=== PATIENT | male | born 1955 | race Caucasian/White ===

== ENCOUNTER 2018-07-16 08:52 | Outpatient (REF) | payer OTHER, SELFPAY ==
[2018-07-16 19:22] LABS: Anion Gap 7.2 mmol/L (3-11); BUN 15 mg/dL (7-18); CO2 29.8 mmol/L (21.0-32.0); CREATININE 1.13 mg/dL (0.70-1.30); Chloride 104 mmol/L (98-107); Cholesterol 157 mg/dL (50-200); Glucose 100 mg/dL (70-100); HDL Cholesterol 65 mg/dL (40-60); LDL CHOLESTEROL 84 mg/dL (<100); Potassium 4.4 mmol/L (3.5-5.1); Sodium 141 mmol/L (136-145); Triglyceride 60 mg/dL (30-150)
[2018-07-16 19:27] LABS: Calcium 8.3 mg/dL (8.5-10.1)
[2018-07-16 19:50] LABS: Hemoglobin A1C 5.6 % (4.5-6.2)
== END 2018-07-16 08:53 ==
LOC: NCHCN 08:52
PROVIDERS: PCP Physician Assistant; Visit Provider Physician Assistant Medical
DX: Z00.00 Encounter for general adult medical examination without abnormal findings (principal); Z13.1 Encounter for screening for diabetes mellitus; Z13.228 Encounter for screening for other metabolic disorders; Z13.220 Encounter for screening for lipoid disorders
CPT/HCPCS: 80048; 80061; 83721; 83036

== ENCOUNTER 2020-07-14 10:58 | Outpatient (REF) | payer OTHER, SELFPAY ==
[2020-07-14 21:35] LABS: Abs Immature Grans 0.04 10^3/uL (0.0-0.06); Absolute Basophil Count 0.04 10^3/uL (0.0-0.2); Absolute Eosinophil Count 0.12 10^3/uL (0.0-0.7); Absolute Lymphocyte Count 0.49 10^3/uL (1.2-3.4); Absolute Monocyte Count 0.54 10^3/uL (0.1-0.8); Basophils % 0.5; Eosinophils % 1.4; HCT 37.6 % (40.0-50.0); HGB 11.4 g/dL (13.5-17.5); Immature Grans % 0.5; Lymphocytes % 5.6; MCH 24.8 pg (27.0-33.0); MCHC 30.3 % (32.0-36.0); MCV 81.7 fL (80-95); MPV 9.7 fL (8.0-11.0); Monocytes % 6.2; Neutrophils % 85.8; Nucleated RBC 0 %; Platelet Count 277 10^3/uL (130-400); RDW 17.3 % (11.8-14.1); RDW-SD 50.8 fL; WBC 8.73 10^3/uL (4.4-10.8)
[2020-07-14 21:50] LABS: ALT 18 U/L (16-63); AST 11 U/L (15-37); Albumin 3.1 g/dL (3.4-5.0); Alkaline Phosphatase 73 U/L (46-116); Anion Gap 10.5 mmol/L (3-11); BUN 19 mg/dL (7-18); Bilirubin, Total 0.5 mg/dL (0.2-1.0); CO2 26.5 mmol/L (21.0-32.0); CREATININE 0.98 mg/dL (0.70-1.30); Calcium 8.7 mg/dL (8.5-10.1); Calculated LDL 72 mg/dL (<100); Chloride 106 mmol/L (98-107); Cholesterol 151 mg/dL (<200); Glucose 102 mg/dL (74-106); HDL Cholesterol 71 mg/dL (40-60); Potassium 4.4 mmol/L (3.5-5.1); Sodium 143 mmol/L (136-145); Total Protein 5.7 g/dL (6.4-8.2); Triglyceride 44 mg/dL (<150)
[2020-07-14 22:04] LABS: Hemoglobin A1C 5.9 % (3.8-5.6)
== END 2020-07-14 11:18 ==
LOC: NCHCN 10:58
PROVIDERS: PCP Internal Medicine; Visit Provider Physician Assistant
DX: R60.0 Localized edema (principal); R73.09 Other abnormal glucose; J44.9 Chronic obstructive pulmonary disease, unspecified; J90 Pleural effusion, not elsewhere classified; M06.9 Rheumatoid arthritis, unspecified; R79.89 Other specified abnormal findings of blood chemistry
CPT/HCPCS: 80053; 80061; 83036; 85025

== ENCOUNTER 2020-09-24 04:03 | Outpatient (RCR) | payer OTHER, SELFPAY ==
[2020-09-24] VITALS (8 sets, daily range): BP systolic 114–139; BP diastolic 70–80; PULSE 86–95; RESP 16–18; TEMP 36.7–37.1; O2SAT 96–98
[2020-09-24] MEDS: methylPREDNISolone SUCC 125 MG VIAL IVP (08:23)
[2020-09-24] MEDS: diphenhydrAMINE 25 MG CAP PO (08:23)
[2020-09-24] MEDS: Normal Saline Flush 10 ML SYR IVP (08:24)
== END 2020-09-25 23:59 | disposition home or self-care (01) ==
LOC: INF 04:03
PROVIDERS: PCP Internal Medicine; Visit Provider Nurse Practitioner Acute Care
DX: M06.9 Rheumatoid arthritis, unspecified (principal)
CPT/HCPCS: 96365; 96366; J2930; J9312

== ENCOUNTER 2020-10-08 03:49 | Outpatient (RCR) | payer OTHER, SELFPAY ==
[2020-10-08 07:47] VITALS: BP 131/75; PULSE 107; RESP 19; TEMP 36.9; O2SAT 97
[2020-10-08] MEDS: methylPREDNISolone SUCC 125 MG VIAL 100 MG IVP (07:51)
[2020-10-08] MEDS: Normal Saline Flush 10 ML SYR IVP (07:53)
[2020-10-08] MEDS: diphenhydrAMINE 25 MG CAP PO (07:53)
[2020-10-08 08:32] VITALS: BP 113/71; PULSE 86; RESP 17; TEMP 36.9; O2SAT 99
[2020-10-08 09:02] VITALS: BP 111/72; PULSE 80; RESP 18; TEMP 36.6; O2SAT 97
[2020-10-08 09:32] VITALS: BP 110/67; PULSE 80; RESP 18; TEMP 36.6; O2SAT 97
== END 2020-10-25 23:59 | disposition home or self-care (01) ==
LOC: INF 03:49
PROVIDERS: PCP Internal Medicine; Visit Provider Nurse Practitioner Acute Care
DX: M06.9 Rheumatoid arthritis, unspecified (principal)
CPT/HCPCS: 96365; 96366; 96375; J2930; J9312

== ENCOUNTER 2020-11-09 13:23 | Outpatient (REF) | payer OTHER, SELFPAY ==
[2020-11-09 19:56] LABS: BUN 15 mg/dL (7-18); CREATININE 1.18 mg/dL (0.70-1.30); Calcium 8.6 mg/dL (8.5-10.1); Chloride 105 mmol/L (98-107); Glucose 110 mg/dL (74-106); Potassium 4.4 mmol/L (3.5-5.1); Sodium 139 mmol/L (136-145)
== END 2020-11-09 13:43 ==
LOC: NCHCN 13:23
PROVIDERS: PCP Internal Medicine; Visit Provider Physician Assistant
DX: R60.0 Localized edema (principal)
CPT/HCPCS: 80048; 83735

== ENCOUNTER 2021-07-15 09:29 | Outpatient (REF) | payer OTHER, SELFPAY ==
[2021-07-15 18:48] LABS: HCT 32.7 % (40.0-50.0); HGB 9.1 g/dL (13.5-17.5); MCH 21.8 pg (27.0-33.0); MCHC 27.8 % (32.0-36.0); MCV 78.2 fL (80-95); MPV 9.4 fL (8.0-11.0); Platelet Count 280 10^3/uL (130-400); RBC 4.18 10^6/uL (4.36-5.78); RDW 21.6 % (11.8-14.1); RDW-SD 61.7 fL; WBC 6.24 10^3/uL (4.4-10.8)
[2021-07-15 19:32] LABS: Anion Gap 7.6 mmol/L (3-11); BUN 17 mg/dL (7-18); CO2 31.4 mmol/L (21.0-32.0); Calcium 8.8 mg/dL (8.5-10.1); Chloride 104 mmol/L (98-107); Glucose 106 mg/dL (74-106); Potassium 4.7 mmol/L (3.5-5.1); Sodium 143 mmol/L (136-145)
== END 2021-07-15 09:30 | disposition home or self-care (01) ==
LOC: NCHCN 09:29
PROVIDERS: PCP Internal Medicine; Visit Provider Physician Assistant
DX: D50.9 Iron deficiency anemia, unspecified (principal); R73.03 Prediabetes; I82.432 Acute embolism and thrombosis of left popliteal vein
CPT/HCPCS: 80048; 85027

== ENCOUNTER 2021-08-23 08:55 | Outpatient (REF) | payer OTHER, SELFPAY ==
[2021-08-23 17:36] LABS: HCT 35.2 % (40.0-50.0); HGB 10.1 g/dL (13.5-17.5); MCHC 28.7 % (32.0-36.0); MCV 83.6 fL (80-95); MPV 10.1 fL (8.0-11.0); Platelet Count 215 10^3/uL (130-400); RBC 4.21 10^6/uL (4.36-5.78); RDW 18.4 % (11.8-14.1); RDW-SD 56.1 fL; WBC 5.58 10^3/uL (4.4-10.8)
== END 2021-08-23 08:56 | disposition home or self-care (01) ==
LOC: NCHCN 08:55
PROVIDERS: PCP Internal Medicine; Visit Provider Physician Assistant
DX: D50.9 Iron deficiency anemia, unspecified (principal)
CPT/HCPCS: 85027

== ENCOUNTER 2021-09-22 08:51 | Outpatient (REF) | payer MEDICARE, SELFPAY ==
[2021-09-22 19:47] LABS: HCT 39.1 % (40.0-50.0); HGB 11.3 g/dL (13.5-17.5); MCH 24.1 pg (27.0-33.0); MCHC 28.9 % (32.0-36.0); MCV 83.5 fL (80-95); MPV 9.4 fL (8.0-11.0); Platelet Count 192 10^3/uL (130-400); RBC 4.68 10^6/uL (4.36-5.78); RDW 14.4 % (11.8-14.1); RDW-SD 43.1 fL; WBC 5.08 10^3/uL (4.4-10.8)
== END 2021-09-22 08:52 | disposition home or self-care (01) ==
LOC: NCHCN 08:51
PROVIDERS: PCP Internal Medicine; Visit Provider Physician Assistant
DX: D50.9 Iron deficiency anemia, unspecified (principal)
CPT/HCPCS: 85027

== ENCOUNTER 2021-09-27 01:58 | Outpatient (RCR) | payer MEDICARE, SELFPAY ==
[2021-09-27] VITALS (9 sets, daily range): BP systolic 112–133; BP diastolic 68–77; PULSE 63–73; RESP 16–18; TEMP 35.9–37.1; O2SAT 96–99
[2021-09-27] MEDS: diphenhydrAMINE 25 MG CAP PO (10:01)
[2021-09-27] MEDS: Normal Saline Flush 10 ML SYR IVP (10:01)
[2021-09-27] MEDS: methylPREDNISolone SUCC 125 MG VIAL 100 MG IVP (10:01)
== END 2021-10-25 23:59 | disposition home or self-care (01) ==
LOC: INF 01:58
PROVIDERS: PCP Internal Medicine; Visit Provider Family Medicine
DX: M06.9 Rheumatoid arthritis, unspecified (principal); Z79.899 Other long term (current) drug therapy
CPT/HCPCS: 96365; 96366; 96374; 96375; J2930; J9312

== ENCOUNTER 2021-10-18 12:17 | Outpatient (REF) | payer MEDICARE, SELFPAY ==
[2021-10-18 20:40] LABS: HCT 40.1 % (40.0-50.0); HGB 11.6 g/dL (13.5-17.5); MCH 24.4 pg (27.0-33.0); MCHC 28.9 % (32.0-36.0); MCV 84.4 fL (80-95); MPV 10.3 fL (8.0-11.0); Platelet Count 196 10^3/uL (130-400); RBC 4.75 10^6/uL (4.36-5.78); RDW 14.2 % (11.8-14.1); RDW-SD 43.4 fL; WBC 6.69 10^3/uL (4.4-10.8)
== END 2021-10-18 12:18 | disposition home or self-care (01) ==
LOC: NCHCN 12:17
PROVIDERS: PCP Internal Medicine; Visit Provider Physician Assistant
DX: D50.9 Iron deficiency anemia, unspecified (principal)
CPT/HCPCS: 85027

== ENCOUNTER 2021-11-03 02:29 | Outpatient (RCR) | payer MEDICARE, SELFPAY ==
[2021-10-26 00:14] VITALS: BP 122/74; PULSE 68; RESP 17; TEMP 36.3
[2021-11-03] VITALS (7 sets, daily range): BP systolic 119–132; BP diastolic 74–86; PULSE 64–83; RESP 17; TEMP 36.3–36.9; O2SAT 97–99
[2021-11-03] MEDS: diphenhydrAMINE 25 MG CAP PO (09:39)
[2021-11-03] MEDS: Normal Saline Flush 10 ML SYR IVP (09:40)
== END 2021-11-25 23:59 | disposition home or self-care (01) ==
LOC: INF 02:29
PROVIDERS: PCP Internal Medicine; Visit Provider Family Medicine
DX: M06.9 Rheumatoid arthritis, unspecified (principal)
CPT/HCPCS: 96365; 96366; J9312

== ENCOUNTER 2022-01-10 09:49 | Outpatient (REF) | payer MEDICARE, SELFPAY ==
[2022-01-10 21:18] LABS: Anion Gap 3.7 mmol/L (3-11); BUN 16 mg/dL (7-18); CO2 30.3 mmol/L (21.0-32.0); Calcium 8.5 mg/dL (8.5-10.1); Chloride 106 mmol/L (98-107); Glucose 100 mg/dL (74-106); Potassium 4.9 mmol/L (3.5-5.1); Sodium 140 mmol/L (136-145)
== END 2022-01-10 09:50 | disposition home or self-care (01) ==
LOC: NCHCN 09:49
PROVIDERS: PCP Internal Medicine; Visit Provider Physician Assistant
DX: D50.9 Iron deficiency anemia, unspecified (principal); R60.9 Edema, unspecified
CPT/HCPCS: 80048

== ENCOUNTER 2022-01-11 15:01 | Outpatient (REF) | payer MEDICARE, SELFPAY ==
[2022-01-11 20:52] LABS: HGB 13.1 g/dL (13.5-17.5); MCH 28.1 pg (27.0-33.0); MCHC 31.2 % (32.0-36.0); MCV 89.9 fL (80-95); MPV 9.8 fL (8.0-11.0); Platelet Count 171 10^3/uL (130-400); RBC 4.67 10^6/uL (4.36-5.78); RDW 14.2 % (11.8-14.1); WBC 5.53 10^3/uL (4.4-10.8)
== END 2022-01-11 15:02 | disposition home or self-care (01) ==
LOC: NCHCN 15:01
PROVIDERS: PCP Internal Medicine; Visit Provider Physician Assistant
DX: D50.9 Iron deficiency anemia, unspecified (principal)
CPT/HCPCS: 85027

== ENCOUNTER 2022-05-16 18:26 | Outpatient (REF) | payer MEDICARE, SELFPAY ==
[2022-05-16 19:16] LABS: HCT 41.2 % (40.0-50.0); HGB 12.7 g/dL (13.5-17.5); MCH 28.4 pg (27.0-33.0); MCHC 30.8 % (32.0-36.0); MCV 92 fL (80-95); MPV 10.2 fL (8.0-11.0); Platelet Count 178 10^3/uL (130-400); RBC 4.47 10^6/uL (4.36-5.78); RDW 13.8 % (11.8-14.1); RDW-SD 46.1 fL; WBC 7.04 10^3/uL (4.4-10.8)
== END 2022-05-16 18:27 | disposition home or self-care (01) ==
LOC: NCHCN 18:26
PROVIDERS: PCP Internal Medicine; Visit Provider Physician Assistant
DX: D50.9 Iron deficiency anemia, unspecified (principal)
CPT/HCPCS: 85027

== ENCOUNTER 2022-07-11 19:14 | Outpatient (REF) | payer MEDICARE, SELFPAY ==
[2022-07-11 20:26] LABS: Anion Gap 5.3 mmol/L (3-11); BUN 16 mg/dL (7-18); CO2 31.7 mmol/L (21.0-32.0); Calcium 8.7 mg/dL (8.5-10.1); Chloride 104 mmol/L (98-107); Ferritin 49 ng/mL (26-388); Glucose 96 mg/dL (74-106); LDL CHOLESTEROL 67 mg/dL (<100); Potassium 4.3 mmol/L (3.5-5.1); Sodium 141 mmol/L (136-145)
== END 2022-07-11 19:15 | disposition home or self-care (01) ==
LOC: NCHCN 19:14
PROVIDERS: PCP Internal Medicine; Visit Provider Physician Assistant
DX: D50.9 Iron deficiency anemia, unspecified (principal); R73.03 Prediabetes; R60.1 Generalized edema; Z79.899 Other long term (current) drug therapy
CPT/HCPCS: 80048; 83721; 82728

== ENCOUNTER 2022-07-12 14:51 | Outpatient (REF) | payer MEDICARE, SELFPAY ==
[2022-07-12 21:04] LABS: HCT 42.1 % (40.0-50.0); HGB 13.9 g/dL (13.5-17.5); MCH 29.8 pg (27.0-33.0); MCV 90 fL (80-95); MPV 9.9 fL (8.0-11.0); Platelet Count 202 10^3/uL (130-400); RBC 4.67 10^6/uL (4.36-5.78); RDW 13.4 % (11.8-14.1); RDW-SD 44.6 fL; WBC 9.76 10^3/uL (4.4-10.8)
[2022-07-12 21:20] LABS: Iron 64 ug/dL (65-175); Total Iron Binding Capacity 308 ug/dL (250-450); Transferrin Sat 21 % (20-55)
[2022-07-12 21:42] LABS: Hemoglobin A1C 5.6 % (<5.7)
== END 2022-07-12 14:52 | disposition home or self-care (01) ==
LOC: NCHCN 14:51
PROVIDERS: PCP Internal Medicine; Visit Provider Physician Assistant
DX: D50.9 Iron deficiency anemia, unspecified (principal); R73.03 Prediabetes; R60.9 Edema, unspecified
CPT/HCPCS: 85027; 83036; 83540; 83550

== ENCOUNTER 2022-10-18 02:09 | Outpatient (RCR) | payer MEDICARE, SELFPAY ==
[2022-10-04] VITALS (9 sets, daily range): BP systolic 107–140; BP diastolic 65–79; PULSE 58–71; RESP 17–18; TEMP 36.3–36.7; O2SAT 95–98
[2022-10-04] MEDS: methylPREDNISolone SUCC 125 MG VIAL 100 MG IVP (09:12)
[2022-10-04] MEDS: Normal Saline Flush 10 ML SYR IVP (09:12)
[2022-10-04] MEDS: diphenhydrAMINE 25 MG CAP PO (09:12)
[2022-10-18] MEDS: diphenhydrAMINE 25 MG CAP PO (09:06)
[2022-10-18 09:07] VITALS: BP 129/76; PULSE 67; RESP 18; TEMP 36.4; O2SAT 97
[2022-10-18] MEDS: Normal Saline Flush 10 ML SYR IVP (09:07)
[2022-10-18] MEDS: riTUXimab-PVVR 1,000 MG in Normal Saline 150 ML 62.5 MG IVPB (09:25)
[2022-10-18 10:00] VITALS: BP 114/69; PULSE 60; RESP 18; TEMP 37; O2SAT 99
[2022-10-18 10:30] VITALS: BP 131/75; PULSE 64; RESP 17; TEMP 36.6; O2SAT 97
[2022-10-18 11:00] VITALS: BP 121/73; PULSE 61; RESP 17; TEMP 36.5; O2SAT 98
[2022-10-18 11:30] VITALS: BP 118/70; PULSE 57; RESP 17; TEMP 36.4; O2SAT 97
[2022-10-18 12:00] VITALS: BP 121/65; PULSE 59; RESP 17; TEMP 36.4; O2SAT 97
== END 2022-10-25 23:59 | disposition home or self-care (01) ==
LOC: INF 02:09
PROVIDERS: PCP Internal Medicine; Visit Provider Nurse Practitioner Acute Care
DX: M06.9 Rheumatoid arthritis, unspecified (principal)
CPT/HCPCS: 96365; 96366; 96374; 96375; J2930; J9312; Q5119

== ENCOUNTER 2023-01-12 13:38 | Outpatient (REF) | payer MEDICARE, SELFPAY ==
[2023-01-12 18:58] LABS: Hemoglobin A1C 5.4 % (<5.7)
[2023-01-12 19:04] LABS: ALT 21 U/L (16-63); AST 21 U/L (15-37); Albumin 4.1 g/dL (3.4-5.0); Alkaline Phosphatase 117 U/L (46-116); Anion Gap 4.9 mmol/L (3-11); BUN 20 mg/dL (7-18); Bilirubin, Total 0.9 mg/dL (0.2-1.0); CO2 32.1 mmol/L (21.0-32.0); CREATININE 1.1 mg/dL (0.70-1.30); Calcium 9.7 mg/dL (8.5-10.1); Chloride 104 mmol/L (98-107); Estimated GFR 72.67 (mL/min/1.73m2); Glucose 103 mg/dL (74-106); Potassium 5.2 mmol/L (3.5-5.1); Sodium 141 mmol/L (136-145); Total Protein 7.3 g/dL (6.4-8.2)
[2023-01-12 19:26] LABS: Abs Immature Grans 0.02 10^3/uL (0.0-0.06); Absolute Basophil Count 0.06 10^3/uL (0.0-0.2); Absolute Eosinophil Count 0.14 10^3/uL (0.0-0.7); Absolute Monocyte Count 0.79 10^3/uL (0.1-0.8); Absolute Neutrophil Count 7.88 10^3/uL (1.2-6.7); Basophils % 0.6; Eosinophils % 1.4; HCT 44.9 % (40.0-50.0); HGB 14.3 g/dL (13.5-17.5); Immature Grans % 0.2; Lymphocytes % 8.3; MCH 28.1 pg (27.0-33.0); MCHC 31.8 % (32.0-36.0); MCV 88 fL (80-95); MPV 9.9 fL (8.0-11.0); Monocytes % 8.2; Neutrophils % 81.3; Platelet Count 220 10^3/uL (130-400); RBC 5.09 10^6/uL (4.36-5.78); RDW 12.8 % (11.8-14.1); RDW-SD 41.5 fL; WBC 9.69 10^3/uL (4.4-10.8)
[2023-01-15 10:18] LABS: PSA, Screening 0.5 ng/mL (<=4.5)
== END 2023-01-12 13:39 | disposition home or self-care (01) ==
LOC: NCHCN 13:38
PROVIDERS: PCP Internal Medicine; Visit Provider Physician Assistant
DX: R73.03 Prediabetes (principal); Z12.5 Encounter for screening for malignant neoplasm of prostate
CPT/HCPCS: 80053; 84153; 83036; 85025

== ENCOUNTER 2023-08-16 18:02 | Outpatient (REF) | payer MEDICARE, SELFPAY ==
[2023-08-16 19:07] LABS: HCT 41.3 % (40.0-50.0); HGB 12.5 g/dL (13.5-17.5); MCH 26.7 pg (27.0-33.0); MCHC 30.3 % (32.0-36.0); MCV 88 fL (80-95); MPV 9.6 fL (8.0-11.0); Platelet Count 216 10^3/uL (130-400); RBC 4.69 10^6/uL (4.36-5.78); RDW 13.7 % (11.8-14.1); RDW-SD 44.1 fL; WBC 8.58 10^3/uL (4.4-10.8)
[2023-08-16 19:27] LABS: AST 15 U/L (15-37); Albumin 3.4 g/dL (3.4-5.0); Alkaline Phosphatase 84 U/L (46-116); Anion Gap 5.5 mmol/L (3-11); BUN 15 mg/dL (7-18); Bilirubin, Total 0.4 mg/dL (0.2-1.0); CO2 29.5 mmol/L (21.0-32.0); Chloride 103 mmol/L (98-107); Estimated GFR 80.97 (mL/min/1.73m2); Glucose 106 mg/dL (74-106); Potassium 4.8 mmol/L (3.5-5.1); Sodium 138 mmol/L (136-145); Total Protein 6.6 g/dL (6.4-8.2)
[2023-08-16 19:52] LABS: ALT 21 U/L (16-63)
== END 2023-08-16 18:03 | disposition home or self-care (01) ==
LOC: NCHCN 18:02
PROVIDERS: PCP Internal Medicine; Visit Provider Physician Assistant
DX: D50.9 Iron deficiency anemia, unspecified (principal); R73.03 Prediabetes
CPT/HCPCS: 80053; 85027

== ENCOUNTER → 2023-10-12 13:00 | Outpatient (BNVA) | payer MEDICARE, SELFPAY | PROVIDERS: PCP Internal Medicine; Referring Provider Internal Medicine; Visit Provider Student in an Organized Health Care Education/Training Program | DX: Z79.51 Long term (current) use of inhaled steroids (principal); Z79.899 Other long term (current) drug therapy; M06.9 Rheumatoid arthritis, unspecified; J44.9 Chronic obstructive pulmonary disease, unspecified; L60.5 Yellow nail syndrome | CPT/HCPCS: 76604; 99214 ==

== ENCOUNTER → 2024-01-21 10:56 | Outpatient (BNVA) | payer MEDICARE, SELFPAY | PROVIDERS: PCP Internal Medicine; Referring Provider Internal Medicine; Visit Provider Physician Assistant Surgical | DX: J44.9 Chronic obstructive pulmonary disease, unspecified (principal); M06.9 Rheumatoid arthritis, unspecified; L60.5 Yellow nail syndrome | CPT/HCPCS: 99214 ==

== ENCOUNTER 2024-02-29 13:45 | Outpatient (REF) | payer MEDICARE, SELFPAY ==
[2024-02-29 19:13] LABS: HCT 41.7 % (40.0-50.0); MCH 27.7 pg (27.0-33.0); MCHC 31.2 % (32.0-36.0); MCV 89 fL (80-95); MPV 9.9 fL (8.0-11.0); Platelet Count 186 10^3/uL (130-400); RBC 4.69 10^6/uL (4.36-5.78); RDW 12.9 % (11.8-14.1); RDW-SD 42.3 fL; WBC 6.86 10^3/uL (4.4-10.8)
[2024-02-29 19:36] LABS: Iron 33 ug/dL (65-175); Total Iron Binding Capacity 312 ug/dL (250-450); Transferrin Sat 11 % (20-55)
[2024-02-29 19:50] LABS: Ferritin 49 ng/mL (26-388)
== END 2024-02-29 13:46 | disposition home or self-care (01) ==
LOC: NCHCN 13:45
PROVIDERS: PCP Internal Medicine; Referring Provider Physician Assistant; Visit Provider Physician Assistant
DX: D50.9 Iron deficiency anemia, unspecified (principal)
CPT/HCPCS: 85027; 82728; 83540; 83550

== ENCOUNTER 2024-04-23 04:50 | Outpatient (RCR) | payer MEDICARE, SELFPAY ==
[2024-04-02] VITALS (9 sets, daily range): BP systolic 116–132; BP diastolic 54–72; PULSE 51–71; RESP 16–18; TEMP 36–36.9; O2SAT 92–98
[2024-04-02] MEDS: diphenhydrAMINE 25 MG CAP PO (09:01)
[2024-04-02] MEDS: Normal Saline Flush 10 ML SYR IVP (09:17)
[2024-04-23] MEDS: diphenhydrAMINE 25 MG CAP PO (09:04)
[2024-04-23] MEDS: Normal Saline Flush 10 ML SYR IVP (09:04)
[2024-04-23 09:10] VITALS: BP 133/75; PULSE 65; RESP 16; TEMP 36.3; O2SAT 99
[2024-04-23 10:15] VITALS: BP 128/71; PULSE 57; RESP 17; TEMP 36.7; O2SAT 96
[2024-04-23 10:45] VITALS: BP 137/72; PULSE 55; RESP 16; TEMP 36.3; O2SAT 98
[2024-04-23 11:15] VITALS: BP 130/72; PULSE 59; RESP 17; TEMP 36.4; O2SAT 99
[2024-04-23 11:45] VITALS: BP 134/73; PULSE 60; RESP 17; TEMP 36.5; O2SAT 98
[2024-04-23 12:45] VITALS: BP 129/68; PULSE 60; RESP 17; TEMP 36.4; O2SAT 98
== END 2024-04-25 23:59 | disposition home or self-care (01) ==
LOC: INF 04:50
PROVIDERS: PCP Internal Medicine; Visit Provider Nurse Practitioner Family
DX: M06.9 Rheumatoid arthritis, unspecified (principal)
CPT/HCPCS: 96365; 96366; J9312

== ENCOUNTER 2024-06-06 23:40 | Outpatient (REF) | payer MEDICARE, SELFPAY ==
[2024-06-06 19:16] LABS: Abs Immature Grans 0.05 10^3/uL (0.0-0.06); Absolute Basophil Count 0.05 10^3/uL (0.0-0.2); Absolute Eosinophil Count 0.08 10^3/uL (0.0-0.7); Absolute Lymphocyte Count 0.59 10^3/uL (1.2-3.4); Absolute Monocyte Count 1.07 10^3/uL (0.1-0.8); Basophils % 0.4 %; Eosinophils % 0.6 %; HGB 13.8 g/dL (13.5-17.5); Immature Grans % 0.4 %; Lymphocytes % 4.6 %; MCH 28.3 pg (27.0-33.0); MCHC 32.1 % (32.0-36.0); MCV 88 fL (80-95); MPV 9.6 fL (8.0-11.0); Monocytes % 8.4 %; Neutrophils % 85.6 %; Platelet Count 280 10^3/uL (130-400); RBC 4.88 10^6/uL (4.36-5.78); RDW-SD 42.3 fL; WBC 12.73 10^3/uL (4.4-10.8)
[2024-06-06 19:34] LABS: ALT 26 U/L (16-63); AST 16 U/L (15-37); Albumin 3.3 g/dL (3.4-5.0); Alkaline Phosphatase 134 U/L (46-116); Anion Gap 4.6 mmol/L (3-11); BUN 15 mg/dL (7-18); CO2 32.4 mmol/L (21.0-32.0); CREATININE 1.1 mg/dL (0.70-1.30); Calcium 9.2 mg/dL (8.5-10.1); Chloride 101 mmol/L (98-107); Estimated GFR 71.77 (mL/min/1.73m2); Glucose 150 mg/dL (74-106); Potassium 4.3 mmol/L (3.5-5.1); Sodium 138 mmol/L (136-145); TSH (W/Ref FT4) 0.72 uIU/mL (0.36-3.74); Total Protein 6.6 g/dL (6.4-8.2)
== END 2024-06-06 23:41 | disposition home or self-care (01) ==
LOC: NCHCN 23:40
PROVIDERS: PCP Internal Medicine; Visit Provider Physician Assistant
DX: R63.4 Abnormal weight loss (principal)
CPT/HCPCS: 80053; 84443; 85025

== ENCOUNTER → 2024-07-17 09:29 | Outpatient (BNVA) | payer MEDICARE, SELFPAY | PROVIDERS: PCP Internal Medicine; Referring Provider Internal Medicine; Visit Provider Internal Medicine Critical Care Medicine | DX: J47.1 Bronchiectasis with (acute) exacerbation (principal); J44.9 Chronic obstructive pulmonary disease, unspecified; R91.8 Other nonspecific abnormal finding of lung field; L60.5 Yellow nail syndrome | CPT/HCPCS: 99214 ==

== ENCOUNTER 2024-07-22 12:36 | Day surgery (SDC) | payer MEDICARE, SELFPAY ==
[2024-07-22] VITALS (22 sets, daily range): BP systolic 111–138; BP diastolic 41–95; PULSE 64–73; RESP 13–26; TEMP 36.2–36.8; O2SAT 92–99; BMI 22.7
[2024-07-22] MEDS: Lactated Ringers 1,000 ML 30 ML IV (13:07)
--- NOTE | 2024-07-22 13:40 | ANES.PREOP_ITS ---
General Info Date of Service Date Performed: 07/22/24 Height: 5 ft 9.5 in Weight: 70.8 kg Body Mass Index (BMI): 22.7 Surgical Procedure: Operation Date: 07/22/24 14:25 Proposed Procedure Side Surgeon p Flexible Bronchoscopy Mendy Echols MD Meds Allergies and Home Medications Allergies Allergy/AdvReac Type Severity Reaction Status Date / Time hay Allergy Unknown red eyes, Uncoded 07/22/24 12:46 stuffy head Home Medication ?Medication ?Instructions ?Recorded ibuprofen 200 mg capsule 200 mg PO Q6H PRN 02/05/23 miscellaneous medical supply 02/05/23 sildenafil 100 mg tablet (Viagra) 100 mg PO DAILY PRN 02/05/23 fluticasone fur. 100 mcg-umeclid 1 inh inhalation DAILY 02/07/23 62.5 mcg-vilant 25 mcg inhalat.powder (Trelegy Ellipta) albuterol sulfate 90 mcg/actuation 2 puff inhalation .COMPLEX PRN 08/24/23 aerosol inhaler ipratropium 0.5 mg-albuterol 3 mg 3 ml inhalation Q6H PRN wheezing 10/29/23 (2.5 mg base)/3 mL nebulization #180 mL soln ferrous sulfate 325 mg (65 mg 325 mg PO DAILY 01/21/24 iron) tablet (Feosol) pantoprazole 20 mg tablet,delayed 20 mg PO DAILY 07/21/24 release Current Visit Medications: Current Medications Generic Name Dose Route Start Last Admin Trade Name Freq PRN Reason Stop Dose Admin Ringer's Solution 1,000 mls @ 30 mls/hr 07/22/24 06:00 07/22/24 13:07 IV 07/22/24 23:59 30 mls/hr INFUSION DEMETRA Administration IV Miscellaneous Supplies 1 each 07/22/24 06:00 Iv Access IV 07/22/24 23:59 DIRECTED DEMETRA Sodium Chloride 0 ml 07/22/24 06:00 Normal Saline Flush 10 Ml Syr IV 07/22/24 23:59 PRN PRN Sodium Chloride 0 ml 07/22/24 06:00 Normal Saline 10 Ml Vial IJ 07/22/24 23:59 DIRECTED PRN Sterile Water 0 ml 07/22/24 06:00 Water,Injection,Sterile 10 Ml Vial IJ 07/22/24 23:59 DIRECTED PRN PFSH Active Problems Active Problems: Problem Status Onset Code Opacity of lung on imaging study Acute R91.8 Bronchiectasis Acute J47.9 Sensorineural hearing loss, bilateral Acute H90.3 Impacted cerumen, bilateral Acute H61.23 Arthritis, rheumatoid Chronic M06.9 Yellow nail syndrome Acute L60.5 Chronic obstructive pulmonary disease, unspecified Chronic J44.9 Impacted cerumen, left ear Acute H61.22 Conductive hearing loss, external ear Acute 04/04/18 H90.2 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 History of colonoscopy external hemorrhoid/lipoma ascending colon -01/14/10 History of thoracentesis H/O sinus surgery History of tonsillectomy and adenoidectomy Tobacco Smoking/Tobacco Use Status: Former Tobacco Use Alcohol Alcohol Intake: current Alcohol intake frequency: a few times a week Alcohol type: beer Substance Use Substance use: Never Substance use type: does not use Vital Signs and Lab Results Vital Signs Most Recent Vital Signs in EMR: Most Recent Vital Signs Temp Pulse Resp BP Pulse Ox 36.8 C 68 16 138/88 99 07/22/24 13:02 07/22/24 13:02 07/22/24 13:02 07/22/24 13:02 07/22/24 13:02 Lab Results Blood Type / Crossmatch: No Data to Display Complete Blood Count: No Data to Display Complete Metabolic Panel: No Data to Display Liver Function Panel: No Data to Display Coagulation Panel: No Data to Display Cardiac Panel: No Data to Display Arterial Blood Gas: No Data to Display Venous Blood Gas: No Data to Display Pancreas Panel: No Data to Display Thyroid Panel: No Data to Display Infectious Disease: No Data to Display Blood Cultures: No Data to Display Toxicology Panel: No Data to Display Anesthesia Assessment and Plan Anesthesia History Personal History: No History of Anesthesia Complications Family History: No Family History of Anesthesia Complications Exercise Tolerance Exercise Tolerance: Metabolic Equivalents>4 Pertinent Negatives Pertinent Negatives: No Symptoms of GERD, No Major Cardiovascular Symptoms or Complaints and No History of CVA/TIA Cardiac & Pulmonary Exam Cardiac Exam: Normal S1/S2 Heart Sounds Pulmonary Exam: Active Cough or Cold Implantable Cardiac Device Does patient have a Pacemaker or an ICD?: No Airway Exam Known Difficult Airway: No Mallampati Class: 2 Mouth Opening: Normal (> 3cm) Thyromental Distance: Greater than 3 cm Neck Range of Motion: Full ROM Neck Circumference: Normal Teeth Condition: Removable Dentures/Plates Upper ASA Classification ASA Score: ASA 3 Emergency Case?: No NPO Status NPO Status: NPO Clears >2 hours, Solids >8 hours Anesthesia Plan Resuscitation Status: Full Code Anesthesia Technique: General Anesthesia Airway Planned: Endotracheal Tube Monitors Used: Standard Monitors Preoperative Comments:: Active productive cough with thick green sputum, new mash filter cloth changer the past few weeks. Discussed with Dr. Schroeder and she is fine with proceeding as this is the reason he was scheduled.
--- NOTE | 2024-07-22 14:32 | PAPNONF_PTH ---
PATIENT: Oliverio [place] LOC: [facility] U#:[id number] AGE/SX: 69/M ROOM: RE07/22/[address]: Mendy Echols : 1955 BED: DIS: 07/22/2024 SPEC #: [id number] RECD: 07/22/24 17:23 STATUS: KEYLA REQ #: [id number] KYM: 07/22/24 14:[address]: Mendy Echols DEPT: [facility] Cytology RECD BY: Dalia Wilcox ENTERED: 07/22/24 17:24 SP TYPE: CHRISTEN BRUNNER DR: Mickey Macedo Tissues: 1 - BODY FLUID CYTO(NOT S/U/N/EM)[facility] Procedures: BODY FLUID CYTO(NOT SPU/UR/NIP/ENDOM)[facility] Comments: [id number] (SENT FRESH) (REFRIGERATED)
--- NOTE | 2024-07-22 14:56 | W.PM.OP ---
Date of service: 07/22/24 Time of Service: 14:00 Operative Note Operative Note DATE OF PROCEDURE: 07/22/24 PRE-OP DIAGNOSIS: Bronchiectasis, productive cough POST-OP DIAGNOSIS: same PROCEDURE: Bronchoscopy BAL RML SURGEON: Mendy Echols ANESTHESIA TYPE: General LMA/ETT Refer to Anesthesia Record ESTIMATED BLOOD LOSS: 0 Procedure Description: After consent obtained, patient was brought to OR and general anesthesia given and ETT 8.0 introduced without difficulty. A time out was performed. Fiberoptic Bronchoscope was introduced through ETT and trachea, johanna, right and left main stem and its subsegments were systematically identified. Trachea was patent and johanna was sharp. Both left and right main stem had some yellow thick secretions but endobronchial lesions seen. 150ml saline was instilled into RML w/ approximately 80ml return of mucopurulent secretion. Patient tolerated procedure well and had no immediate complications. Samples will be sent to -BAL cell count, micro, fungal, AFB cultures -BAL cytology
--- NOTE | 2024-07-22 16:10 | W.ANESPOSTOP ---
Postoperative Evaluation Date, Time and Location Date Performed: 07/22/24 Time Performed: 16:10 Patient Location: Day Surgery Unit Vital Signs Most Recent Imported Vital Signs: Most Recent Vital Signs Temp Pulse Resp BP Pulse Ox 36.6 C 65 20 121/64 94 07/22/24 15:40 07/22/24 15:40 07/22/24 15:40 07/22/24 15:40 07/22/24 15:40 Pain Score Most Recent Pain Score: Most Recent Pain Score Pain Level 0 07/22/24 15:40 Assessment Mental Status: Awake (Alert & Oriented to Patient Baseline) Airway and Respiratory Function: Patent airway with normal (patient baseline) respiratory exam Cardiovascular Function: Hemodynamically Stable Hydration Status: Adequately Hydrated Nausea & Vomiting: No Nausea or Vomiting Pain: Pt. Denies Any Pain Peripheral Nerve Block: Patient did not receive a nerve block
[2024-07-23 08:56] LABS: Eosinophils Fluid Relative 2 %; Lymphocytes Fluid Relative 6 %; Mono/Macrophage Fluid Relative 6 %; Neutrophils Fluid Relative 86 %
[2024-07-24 15:58] LABS: Gram Smear Result Neutrophils Present
[2024-08-27 09:51] LABS: Fungal Culture & Smear See Comments
[2024-09-17 11:20] LABS: AFB Culture Result See Comments
== END 2024-07-22 16:16 | disposition home or self-care (01) ==
PROVIDERS: PCP Internal Medicine; Visit Provider Internal Medicine Critical Care Medicine
PROC: 0BJ08ZZ Inspection of Tracheobronchial Tree, Via Natural or Artificial Opening Endoscopic (ICD-10-PCS; CPT 31622; principal; 2024-07-22 14:15)
DX: J47.1 Bronchiectasis with (acute) exacerbation (principal); R91.8 Other nonspecific abnormal finding of lung field; R84.6 Abnormal cytological findings in specimens from respiratory organs and thorax
CPT/HCPCS: 31624; 123; 80162; 87070; 87077; 87102; 87116; 87205; 87206; 00123; 88104; J1100; J2001; J2405; J2704

== ENCOUNTER → 2024-08-06 09:57 | Outpatient (BNVA) | payer MEDICARE, SELFPAY | PROVIDERS: PCP Internal Medicine; Referring Provider Internal Medicine; Visit Provider Physician Assistant Surgical | DX: J14 Pneumonia due to Hemophilus influenzae (principal); R91.8 Other nonspecific abnormal finding of lung field; J44.9 Chronic obstructive pulmonary disease, unspecified; M06.9 Rheumatoid arthritis, unspecified; L60.5 Yellow nail syndrome; J47.1 Bronchiectasis with (acute) exacerbation | CPT/HCPCS: 99214 ==

== ENCOUNTER → 2024-09-09 10:15 | Outpatient (BNVA) | payer MEDICARE, SELFPAY | PROVIDERS: PCP Internal Medicine; Referring Provider Internal Medicine; Visit Provider Physician Assistant Surgical | DX: J44.9 Chronic obstructive pulmonary disease, unspecified (principal); L60.5 Yellow nail syndrome; R91.8 Other nonspecific abnormal finding of lung field; M06.9 Rheumatoid arthritis, unspecified; J47.1 Bronchiectasis with (acute) exacerbation; J14 Pneumonia due to Hemophilus influenzae | CPT/HCPCS: 99214 ==

== ENCOUNTER 2025-03-18 11:53 | Outpatient (REF) | payer MEDICARE, SELFPAY ==
[2025-03-18 21:40] LABS: ALT 21 U/L (16-63); AST 21 U/L (15-37); Albumin 3.8 g/dL (3.4-5.0); Alkaline Phosphatase 88 U/L (46-116); Anion Gap 6.5 mmol/L (3-11); BUN 23 mg/dL (7-18); Bilirubin, Total 0.6 mg/dL (0.2-1.0); CO2 30.5 mmol/L (21.0-32.0); CREATININE 1.2 mg/dL (0.70-1.30); Calcium 9.3 mg/dL (8.5-10.1); Chloride 106 mmol/L (98-107); Estimated GFR 64.25 (mL/min/1.73m2); Glucose 109 mg/dL (74-106); Potassium 5.2 mmol/L (3.5-5.1); Sodium 143 mmol/L (136-145); Total Protein 6.8 g/dL (6.4-8.2)
[2025-03-18 21:49] LABS: Hemoglobin A1C 5.7 % (<5.7)
[2025-03-18 22:01] LABS: Calculated LDL 71 mg/dL (<100); Cholesterol 159 mg/dL (<200); HDL Cholesterol 82 mg/dL (>or=40); Triglyceride 31 mg/dL (<150)
== END 2025-03-18 11:54 | disposition home or self-care (01) ==
LOC: NCHCN 11:53
PROVIDERS: PCP Internal Medicine; Visit Provider Nurse Practitioner Family
DX: R73.03 Prediabetes (principal); Z13.220 Encounter for screening for lipoid disorders; R60.0 Localized edema
CPT/HCPCS: 80053; 80061; 83036

== ENCOUNTER 2025-03-19 01:58 | Outpatient (RCR) | payer MEDICARE, SELFPAY ==
[2024-04-26 00:03] VITALS: BP 129/68; PULSE 60; RESP 17; TEMP 36.4
[2025-03-19] VITALS (9 sets, daily range): BP systolic 120–143; BP diastolic 71–80; PULSE 59–76; RESP 17–19; TEMP 36.3–36.8; O2SAT 94–99
[2025-03-19] MEDS: Normal Saline Flush 5 ML SYR IVP (09:06)
[2025-03-19] MEDS: diphenhydrAMINE 25 MG CAP PO (09:06)
== END 2025-03-25 23:59 | disposition home or self-care (01) ==
LOC: INF 01:58
PROVIDERS: PCP Internal Medicine; Visit Provider Nurse Practitioner Family
DX: M06.9 Rheumatoid arthritis, unspecified (principal)
CPT/HCPCS: 96365; 96366; J9312

== ENCOUNTER 2025-04-02 01:22 | Outpatient (RCR) | payer MEDICARE, SELFPAY ==
[2025-04-02 09:25] VITALS: BP 127/74; PULSE 57; RESP 18; TEMP 36.9; O2SAT 98
[2025-04-02 10:00] VITALS: BP 125/74; PULSE 56; RESP 20; TEMP 37.4; O2SAT 96
[2025-04-02] MEDS: diphenhydrAMINE 25 MG CAP PO (10:08)
[2025-04-02] MEDS: Normal Saline Flush 5 ML SYR IVP (10:08)
[2025-04-02 10:30] VITALS: BP 125/76; PULSE 58; RESP 19; TEMP 36.8; O2SAT 97
[2025-04-02 11:00] VITALS: BP 122/73; PULSE 60; RESP 19; TEMP 36.9; O2SAT 98
[2025-04-02 11:30] VITALS: BP 137/77; PULSE 51; RESP 20; TEMP 36.6; O2SAT 95
== END 2025-04-25 23:59 | disposition home or self-care (01) ==
LOC: INF 01:22
PROVIDERS: PCP Internal Medicine; Visit Provider Nurse Practitioner Family
DX: M06.9 Rheumatoid arthritis, unspecified (principal)
CPT/HCPCS: 96365; 96366; J9312

== ENCOUNTER 2025-06-30 16:20 | Outpatient (REF) | payer MEDICARE, SELFPAY ==
[2025-06-30 20:50] LABS: Abs Immature Grans 0.05 10^3/uL (0.0-0.06); HCT 42.1 % (40.0-50.0); HGB 13.1 g/dL (13.5-17.5); Immature Grans % 0.4 %; MCH 26.1 pg (27.0-33.0); MCHC 31.1 % (32.0-36.0); MCV 84 fL (80-95); MPV 9.9 fL (8.0-11.0); Platelet Count 244 10^3/uL (130-400); RBC 5.01 10^6/uL (4.36-5.78); RDW 14.0 % (11.8-14.1); RDW-SD 43.0 fL; WBC 12.91 10^3/uL (4.4-10.8)
[2025-06-30 20:58] LABS: Anion Gap 4.3 mmol/L (3-11); BUN 17 mg/dL (7-18); CO2 31.7 mmol/L (21.0-32.0); Calcium 9.1 mg/dL (8.5-10.1); Chloride 104 mmol/L (98-107); Estimated GFR 94.03 (mL/min/1.73m2); Glucose 106 mg/dL (74-106); Potassium 4.6 mmol/L (3.5-5.1); Sodium 140 mmol/L (136-145)
== END 2025-06-30 16:21 | disposition home or self-care (01) ==
LOC: NCHCN 16:20
PROVIDERS: PCP Internal Medicine; Visit Provider Physician Assistant
DX: R33.9 Retention of urine, unspecified (principal)
CPT/HCPCS: 80048; 84153; 85025

== ENCOUNTER 2025-07-03 15:42 | Outpatient (REF) | payer MEDICARE, SELFPAY ==
[2025-07-06 08:03] LABS: PSA, Screening 0.5 ng/mL (<=6.5)
== END 2025-07-03 15:43 | disposition home or self-care (01) ==
LOC: NCHCN 15:42
PROVIDERS: PCP Internal Medicine; Visit Provider Physician Assistant
DX: R33.9 Retention of urine, unspecified (principal)
CPT/HCPCS: 84153

== ENCOUNTER 2025-07-28 13:50 | Outpatient (REF) | payer MEDICARE, SELFPAY ==
[2025-07-28 19:32] LABS: Abs Immature Grans 0.03 10^3/uL (0.0-0.06); HCT 39.3 % (40.0-50.0); HGB 12.2 g/dL (13.5-17.5); Immature Grans % 0.3 %; MCH 25.7 pg (27.0-33.0); MCHC 31.0 % (32.0-36.0); MCV 83 fL (80-95); MPV 9.6 fL (8.0-11.0); Platelet Count 243 10^3/uL (130-400); RBC 4.75 10^6/uL (4.36-5.78); RDW 13.6 % (11.8-14.1); RDW-SD 41.1 fL; WBC 9.25 10^3/uL (4.4-10.8)
== END 2025-07-28 13:51 | disposition home or self-care (01) ==
LOC: NCHCN 13:50
PROVIDERS: PCP Internal Medicine; Visit Provider Physician Assistant
DX: D72.829 Elevated white blood cell count, unspecified (principal)
CPT/HCPCS: 85025

== ENCOUNTER → 2025-08-11 09:14 | Outpatient (BNVA) | payer MEDICARE, SELFPAY | PROVIDERS: PCP Internal Medicine; Referring Provider Internal Medicine; Visit Provider Internal Medicine Pulmonary Disease | DX: J47.1 Bronchiectasis with (acute) exacerbation (principal); R91.8 Other nonspecific abnormal finding of lung field; L60.5 Yellow nail syndrome | CPT/HCPCS: 99214 ==

== ENCOUNTER 2025-08-11 15:18 | Outpatient (REF) | payer MEDICARE, SELFPAY | END 2025-08-11 15:19 | disposition home or self-care (01) | LOC: LBN 15:18 | PROVIDERS: PCP Internal Medicine; Visit Provider Internal Medicine Pulmonary Disease | DX: J47.1 Bronchiectasis with (acute) exacerbation (principal) | CPT/HCPCS: 87070; 87205 ==

== ENCOUNTER 2025-08-20 01:57 | Outpatient (CLI) | payer MEDICARE, SELFPAY ==
[2025-08-20] MEDS: Inhaler, Assist Device 1 EACH MC (11:12)
[2025-08-20] MEDS: Levalbuterol HFA 15 GM INH 4 PUFF IH (11:13)
--- NOTE | 2025-08-20 11:28 | W.PFT ---
Date of service: 08/20/25 Time of Service: 09:58 Pulmonary Function Test Result Indications: Bronchiectasis Impression 1. Good patient effort was noted. ATS standards for reproducibility were met. 2. Spirometry showed moderate obstructive lung disease with an FEV1 of 66% (1.92 L) 3. Following the administration of a bronchodilator there was not a significant response 4. TLC was reduced at 71% predicted, consistent with mild restrictive lung disease 5. DLCO was 79%, consistent with a mild defect in alveolar gas exchange
== END 2025-08-20 01:58 | disposition home or self-care (01) ==
LOC: RT 01:58
PROVIDERS: PCP Internal Medicine; Visit Provider Internal Medicine Pulmonary Disease
DX: J47.1 Bronchiectasis with (acute) exacerbation (principal); L60.5 Yellow nail syndrome; J44.9 Chronic obstructive pulmonary disease, unspecified
CPT/HCPCS: 94060; 94726; 94729

== ENCOUNTER → 2025-09-14 09:17 | Outpatient (BNVA) | payer MEDICARE, SELFPAY | PROVIDERS: PCP Internal Medicine; Referring Provider Internal Medicine; Visit Provider Internal Medicine Pulmonary Disease | DX: J44.9 Chronic obstructive pulmonary disease, unspecified (principal); J47.1 Bronchiectasis with (acute) exacerbation; L60.5 Yellow nail syndrome; R91.8 Other nonspecific abnormal finding of lung field; Z23 Encounter for immunization; Z87.891 Personal history of nicotine dependence | CPT/HCPCS: 90471; 90653; 99215 ==